=== PATIENT | male | born 1960 | race Caucasian/White ===

== ENCOUNTER 2017-10-15 22:40 | Emergency (ER) | payer OTHER ==
--- NOTE | 2017-10-15 22:59 | EDPHY ---
H & P Time Seen by Provider: 10/15/17 22:45 HPI/ROS: HPI The patient presents with alcohol intoxication and inability to walk. The patient has a history of alcoholism and has been sober for several years, he appears to have had a relapse, over the last 7-10 days, drinking and then returning home to his sober living facility.. He tonight returned, obviously intoxicated and his friends at the sober house [facility]. When he was there, he was unable to stand with a steady gait, so they brought him to the emergency department. The patient denies any acute complaints. He denies any shortness of breath, palpitations, cough, leg swelling. REVIEW OF SYSTEMS Constitutional: No fever, no chills. Eyes: No discharge. ENT: No sore throat. Cardiovascular: No chest pain, no palpitations. Respiratory: No cough, no shortness of breath. Gastrointestinal: No abdominal pain, no vomiting. Genitourinary: No hematuria. Musculoskeletal: No back pain. Skin: No rashes. Neurological: No headache. PMHx: Denies any medical problems Soc Hx: History of alcoholism, has been living in [facility] a sober living facility, no tobacco use, retired [employer] PHYSICAL General Appearance: Alert, no distress Eyes: Pupils equal and round no pallor or injection ENT, Mouth: Mucous membranes moist Respiratory: There are no retractions, lungs are clear to auscultation Cardiovascular: Regular rate and rhythm Gastrointestinal: Abdomen is soft and non-tender, no masses, bowel sounds normal Neurological: A&O, moves all extremities Skin: Warm and dry, no rashes Musculoskeletal: Neck is supple non tender Extremities: symmetrical, full range of motion Psychiatric: Patient is oriented X 3, there is no agitation Source: Patient Exam Limitations: Intoxication Constitutional: Initial Vital Signs Temperature (C) 36.3 C 10/15/17 22:58 Heart Rate 104 H 10/15/17 22:58 Respiratory Rate 18 10/15/17 22:58 Blood Pressure 141/104 H 10/15/17 22:58 O2 Sat (%) 83 L 10/15/17 22:58 O2 Delivery Mode Room Air O2 (L/minute) 2 Allergies/Adverse Reactions: No Known Allergies Allergy (Unverified 10/15/17 22:57) Home Medications: Medication Instructions Recorded Effexor 10/15/17 Medical Decision Making - Diagnostics Imaging Results: Chest x-ray two view shows no infiltrate, no effusion, interpreted by me, radiology interpretation is pending. Imaging: I viewed and interpreted images myself Differential Diagnosis: This is a 57-year-old man with history of alcoholism who has recently relapsed and appears intoxicated, brought in by friends at sober living facility for monitoring as he cannot walk steadily. He would like to go to the [facility] once he is medically cleared. On exam, he is notably hypoxic, though denies any respiratory complaints. This could be related to his level of sedation and intoxication. Other possibilities include pneumonia, pneumothorax. In the emergency department, patient was monitored for several hours and slept for most of his stay here. He received supplemental oxygen initially. Room air saturation was about 92 which time of discharge. I feel his intoxication was causing his low oxygenation. He will be discharged to the [facility] with Librium. - Data Points Medications Given: Discontinued Medications Chlordiazepoxide (Librium 25 Mg Prepack#6) 1 btl [facility] Stop: 10/16/17 05:08 Last Admin: 10/16/17 05:12 Dose: 1 btl Departure - Departure Disposition: Home, Routine, Self-Care Clinical Impression: Hypoxia Alcoholic intoxication Qualifiers: Complication of substance-induced condition: with delirium Qualified Code(s): F10.921 - Alcohol use, unspecified with intoxication delirium Condition: Good Instructions: Alcohol Intoxication (ED) Referrals: [facility] [Outside] - As per Instructions
[2017-10-16 03:58] VITALS: RESP 15
[2017-10-16] MEDS ORDERED: CHLORDIAZEPOXIDE 25MG PREPK#6 BTL TAKEHOME ONE (05:07)
[2017-10-16 05:25] VITALS: BP 126/68; PULSE 67; TEMP 98.6; O2SAT 91
== END 2017-10-16 05:22 | disposition home or self-care (01) ==
DX: F10.921 Alcohol use, unspecified with intoxication delirium (principal); R09.02 Hypoxemia

== ENCOUNTER 2017-10-16 19:27 | Inpatient (IN) | payer OTHER ==
[2017-10-16] MEDS ORDERED: NS 1,000 ML IV ONE ×2 (19:32)
[2017-10-16] MEDS ORDERED: LORazepam 2 MG/ML INJ IVP ONE (19:32)
[2017-10-16 19:41] LABS: % IMMATURE GRANULYOCYTES 0.4 % (0.0-1.1); ABSOLUTE IMMATURE GRANULOCYTES 0.02 10^3/uL (0.00-0.10); ADD DIFF? NO; ADD MORPH? NO; ADD SCAN? NO; ATYPICAL LYMPHOCYTE FLAG 0 (0-99); FRAGMENT RBC FLAG 0 (0-99); HEMATOCRIT 44.4 % (40.0-51.0); HEMOGLOBIN 15.3 g/dL (13.7-17.5); LEFT SHIFT FLG 0 (0-99); LIPEMIA HEMOLYSIS FLAG 90 (0-99); MEAN CELL HEMOGLOBIN 36.2 pg (27.9-34.1); MEAN CELL HEMOGLOBIN CONCENTR. 34.5 g/dL (32.4-36.7); MEAN PLATELET VOLUME 10.2 fL (8.7-11.7); PLATELET CLUMPS FLAG 10 (0-99); PLATELET COUNT 61 10^3/uL (150-400); RED BLOOD CELL COUNT 4.23 10^6/uL (4.40-6.38); RED CELL DISTRIBUTION WIDTH 14.1 % (11.5-15.2)
[2017-10-16 19:52] LABS: ANION GAP 29 mEq/L (8-16); CALCIUM 8.8 mg/dL (8.5-10.4); CARBON DIOXIDE 23 mEq/l (22-31); CHLORIDE 87 mEq/L (97-110); CREATININE 0.9 mg/dL (0.7-1.3); ETHANOL SERUM 17 mg/dL (0-10); GLOMERULAR FILTRATION RATE > 60; GLUCOSE 134 mg/dL (70-100); SODIUM 139 mEq/L (134-144)
[2017-10-16 19:56] LABS: POTASSIUM 2.5 mEq/L (3.5-5.2)
[2017-10-16] MEDS ORDERED: MAGNESIUM SULF 2 GM/WATER 50 ML IV ONE (20:04)
[2017-10-16] MEDS ORDERED: POTASSIUM Cl (KCl) 100 ML IV ONE (20:04)
--- NOTE | 2017-10-16 20:26 | EDPHY ---
H & P Stated Complaint: etoh sz at [facility] - Personal History Current Tetanus/Diphtheria Vaccine: Unsure Current Tetanus Diphtheria and Acellular Pertussis (TDAP): Unsure - Medical/Surgical History Hx Asthma: No Hx Chronic Respiratory Disease: No Hx Diabetes: No Hx Cardiac Disease: No Hx Renal Disease: No Hx Cirrhosis: No Hx Alcoholism: No Hx HIV/AIDS: No Hx Splenectomy or Spleen Trauma: No Other PMH: etoh - Social History Smoking Status: Never smoked HPI/ROS: Chief complaint: Seizure History of present illness: This is a 57-year-old male who is brought to the emergency department by EMS from the [facility] for a seizure. Patient was seen in this emergency department last night for intoxication. He was allowed to sober up and then was sent to the [facility] early this morning with Librium. Apparently this evening he had a seizure in bed and rolled off of the bed. It was described to me by EMS as a tonic-clonic type seizure. A postictal state was noted. Patient has a history of alcohol abuse. However on my evaluation he is alert and talking to me and states he has never had a seizure with alcohol withdrawal before. On my evaluation he states he is feeling generally unwell but no specific complaints. Review of systems: A 10 point review of systems was obtained and other than described above was negative (Phil Ann) - Physical Exam Exam: General Appearance: Alert, nontoxic, mildly tremulous. Eyes: Pupils equal and round no pallor or injection. ENT, Mouth: Mucous membranes moist. Respiratory: There are no retractions, lungs are clear to auscultation. Cardiovascular: Tachycardic with regular rhythm. Gastrointestinal: Abdomen is soft and non tender, no masses, bowel sounds normal. Neurological: Alert and able to converse with me. Moving all extremities. Skin: Warm and dry, no rashes. Contusion around the left eye that appears to be in later stages of healing. Musculoskeletal: Neck is supple non tender. Extremities are symmetrical, full range of motion. Psychiatric: There is no agitation. (Phil Ann) Constitutional: Initial Vital Signs Temperature (C) 36.7 C 10/16/17 19:25 Heart Rate 116 H 10/16/17 19:25 Respiratory Rate 18 10/16/17 19:25 Blood Pressure 170/117 H 10/16/17 19:25 O2 Sat (%) 95 10/16/17 19:25 O2 Delivery Mode Room Air Allergies/Adverse Reactions: No Known Allergies Allergy (Unverified 10/15/17 22:57) Home Medications: Medication Instructions Recorded Venlafaxine Xr [Effexor Xr 75MG 75 mg PO DAILY 10/15/17 (*)] Multivitamins [Multivitamin (*)] 1 each PO DAILY 10/16/17 Medical Decision Making - Diagnostics Imaging: Discussed imaging studies w/ certified genetic counselor Radiologist, I viewed and interpreted images myself ED Course/Re-evaluation: Patient is discussed with my secondary supervising physician Dr. Gabriel Fried. Patient is brought to the emergency department from the [facility] for an apparent seizure. He was sent to the [facility] early this morning with a Librium prepack. However he states he did not get any. We did contact the [facility]. They confirm they did not give him any as he appeared well all day. Evaluation reveals him to be tachycardic and hypertensive on arrival. He was given 2 mg of Ativan with improvement in symptoms and vital signs but he became profoundly hypoxic in the low 80s. He does maintain his oxygen saturation well on 1 L of oxygen by nasal cannula. Blood studies are obtained. He is hypokalemic. He is given magnesium and potassium. Given withdrawal seizure, difficulty treating patient with benzos given secondary hypoxia and hypokalemia he will be admitted for further care. (Phil Ann) Differential Diagnosis: Included but not limited to alcohol intoxication, alcohol withdrawal, DT, electrolyte disturbances, traumatic injury (Phil Ann) - Data Points Laboratory Results: Laboratory Results 10/16/17 19:30 10/16/17 19:30 Medications Given: Chlordiazepoxide HCl (Librium) 25 - 50 mg PO Q4HRS PRN PRN Reason: Agitation Stop: 04/14/18 21:57 Last Admin: 10/17/17 05:21 Dose: 25 mg Hydralazine HCl (Apresoline) 10 mg IVP Q6 PRN PRN Reason: SBP>160 Stop: 04/14/18 22:00 Last Admin: 10/17/17 05:18 Dose: 10 mg Thiamine HCl 500 mg/ Sodium (Chloride) 105 mls @ 210 mls/hr IV DAILY MISSY Stop: 10/20/17 08:59 Last Admin: 10/17/17 08:53 Dose: 105 mls Ondansetron HCl (Zofran) 4 mg IVP Q4 PRN PRN Reason: Nausea/Vomiting, Can't Take PO Stop: 04/14/18 22:00 Last Admin: 10/17/17 10:29 Dose: 4 mg Promethazine HCl (Phenergan) 6.25 mg IVP Q6 PRN PRN Reason: Nausea/Vomiting, Can't Take PO Stop: 04/14/18 22:00 Last Admin: 10/16/17 23:24 Dose: 6.25 mg Discontinued Medications Chlordiazepoxide HCl (Librium) 25 mg PO EDNOW ONE Stop: 10/16/17 21:12 Last Admin: 10/16/17 22:17 Dose: 25 mg Sodium Chloride (Ns) 1,000 mls @ 0 mls/hr IV EDNOW ONE; Wide Open PRN Reason: Protocol Stop: 10/16/17 19:33 Last Admin: 10/16/17 19:48 Dose: 1,000 mls Sodium Chloride (Ns) 1,000 mls @ 0 mls/hr IV EDNOW ONE; Wide Open PRN Reason: Protocol Stop: 10/16/17 19:33 Last Admin: 10/16/17 19:49 Dose: 1,000 mls Magnesium Sulfate (Magnesium Sulf 2 Gm (Premix)) 50 mls @ 50 mls/hr IV EDNOW ONE Stop: 10/16/17 21:03 Last Admin: 10/16/17 20:35 Dose: 50 mls Potassium Chloride (Potassium Cl 10 Meq (Premix)) 100 mls @ 100 mls/hr IV EDNOW ONE Stop: 10/16/17 21:03 Last Admin: 10/16/17 23:39 Dose: Not Given Potassium Chloride 10 meq/ (Sodium Chloride) 100 mls @ 100 mls/hr IV EDNOW ONE Stop: 10/16/17 21:59 Last Admin: 10/16/17 23:24 Dose: 100 mls Lorazepam (Ativan Injection) 2 mg IVP EDNOW ONE Stop: 10/16/17 19:33 Last Admin: 10/16/17 19:48 Dose: 2 mg Potassium Chloride (Klor-Con) 40 meq PO ONCE ONE PRN Reason: Protocol Stop: 10/17/17 09:50 Last Admin: 10/17/17 10:29 Dose: 40 meq Departure - Departure Disposition: [facility] Clinical Impression: Hypoxia, Hypokalemia Alcohol withdrawal Qualifiers: Complication of substance-induced condition: with unspecified complication Qualified Code(s): F10.239 - Alcohol dependence with withdrawal, unspecified Condition: Fair
[2017-10-16] MEDS ORDERED: POTASSIUM Cl (KCl) 10 MEQ in NS 100 ML IV ONE (21:00)
[2017-10-16] MEDS ORDERED: chlordiazePOXIDE 25 MG CAP PO ONE (21:11)
[2017-10-16] MEDS ORDERED: LORazepam 2 MG/ML INJ IVP PRN (21:58)
[2017-10-16] MEDS ORDERED: PROMETHAZINE HCL 25 MG/ML INJ IVP PRN (22:01)
[2017-10-16] MEDS ORDERED: hydrALAZINE 20 MG/ML VIAL IVP PRN (22:01)
[2017-10-16] MEDS ORDERED: ACETAMINOPHEN 500 MG TAB PO PRN (22:01)
[2017-10-16] MEDS ORDERED: ONDANSETRON 4 MG/2 ML VIAL IVP PRN (22:01)
--- NOTE | 2017-10-16 22:56 | GHP ---
[f rep st] HISTORY AND PHYSICAL DATE OF ADMISSION: 10/16/2017 CHIEF COMPLAINT: Seizure. HISTORY: The patient is a 57-year-old male, brought from the [facility] due to a seizure. He was seen in [facility] emergency room last night for intoxication and sent to the [facility] this morning once he had sobered up with a prescription for Librium. This evening, he had a seizure while in bed at the [facility]. He fell o ut of bed. He had a postictal period afterwards. The patient does not remember having a seizure. Jean oliver did not give him any Librium at all while he was at [facility] because he was actually doing very well w ithout any obvious signs of withdrawal. He is now again awake and alert in the emergency room withou t any acute complaints. He did desaturate to 80% on room air after 2 mg of Ativan. PAST MEDICAL HISTORY: Alcoholism. MEDICATIONS: Please see computerized record for full detailed list. ALLERGIES: No known drug allergies. SOCIAL HISTORY: No smoking. He drinks 1-1/2 pints per day of vodka. He is a retired police communications operator . He lives between his and the [facility]. REVIEW OF SYSTEMS: Complete review of systems obtained. Review of systems negative for constitution al, HEENT, GI, pulmonary, cardiovascular, , hematology, skin, muscular, endocrine psych, except for positives and negatives as in the HPI. FAMILY HISTORY: Reviewed and noncontributory to presenting complaint. PHYSICAL EXAMINATION: GENERAL: Well-developed, well-nourished male, in no distress. VITAL SIGNS: Temperature is 36.7, pulse 116, blood pressure 170/117, saturating 95% on room air. HEENT: Normal c onjunctivae. Pupils react to light. Normal ears, nose. Hearing intact. Normal teeth. Oropharynx m oist. NECK: Trachea midline. No thyromegaly. CHEST: Normal respiratory effort. LUNGS: Cleat to auscultation bilaterally. CARDIOVASCULAR: Regular rhythm. No murmur. No lower extremity edema. ABDOMEN: Soft, nontender. No hepatosplenomegaly. SKIN: Warm, dry, intact, without rash. MUSCULOS KELETAL: No cyanosis or clubbing. Strength 5/5 upper and lower extremities. There is minimal tremo r. NEUROLOGIC: Cranial nerves intact. Normal sensation to light touch. PSYCHIATRIC: Alert and or iented x3. Normal affect. Normal judgment and insight. Normal memory. LABORATORY DATA: White count 4.75, hematocrit 44.4, platelets 61. Sodium 131, potassium 2.5, chlori de 85, bicarb 23, BUN 9, creatinine 0.9, glucose 134. Alcohol level is 17. Head CT is negative. Ch est x-ray is negative. DISCUSSION: This case was discussed with Phil Ann, emergency room provider, regarding emergency ro om course. ASSESSMENT/PLAN: 1. Alcohol withdrawal seizure. Will place him on a CIWA protocol and use benzos as needed. His wit hdrawal does not appear to be severe at this time. The patient does desire complete alcohol cessatio n and to return to rehab, where he has been in the past. 2. Hypokalemia. This will be repleted per potassium protocol. 3. Hypertension. Patient states he only has high blood pressure when he is drinking. He does not h ave underlying essential hypertension. Will treat p.r.n. for extreme blood pressure elevations here, but he will likely not require medication upon discharge. 4. Thrombocytopenia. This is due to his alcohol use. We will follow it. CODE STATUS: Full. ADMISSION STATUS: Will admit to observation as depending on the severity of his alcohol withdrawal w ill determine length of stay needed. DEEP VEIN THROMBOSIS PROPHYLAXIS: Will hold off on pharmacologic prophylaxis due to his severe throm bocytopenia. /[id number]/MODL
[2017-10-17 04:15] LABS: % IMMATURE GRANULYOCYTES 0.2 % (0.0-1.1); ABSOLUTE IMMATURE GRANULOCYTES 0.01 10^3/uL (0.00-0.10); ADD DIFF? NO; ADD MORPH? NO; ADD SCAN? NO; ATYPICAL LYMPHOCYTE FLAG 0 (0-99); FRAGMENT RBC FLAG 0 (0-99); HEMATOCRIT 36.4 % (40.0-51.0); HEMOGLOBIN 12.9 g/dL (13.7-17.5); LEFT SHIFT FLG 0 (0-99); LIPEMIA HEMOLYSIS FLAG 90 (0-99); MEAN CELL HEMOGLOBIN 35.3 pg (27.9-34.1); MEAN CELL HEMOGLOBIN CONCENTR. 35.4 g/dL (32.4-36.7); MEAN CELL VOLUME 99.7 fL (81.5-99.8); MEAN PLATELET VOLUME 10.9 fL (8.7-11.7); PLATELET CLUMPS FLAG 0 (0-99); RED BLOOD CELL COUNT 3.65 10^6/uL (4.40-6.38); RED CELL DISTRIBUTION WIDTH 13.8 % (11.5-15.2)
[2017-10-17 04:20] LABS: PLATELET COUNT 39 10^3/uL (150-400)
[2017-10-17 04:34] LABS: ALANINE AMINOTRANSFERASE 80 IU/L (21-72); ALBUMIN 3.3 g/dL (3.5-5.0); ALKALINE PHOSPHATASE 56 IU/L (38-126); ANION GAP 11 mEq/L (8-16); ASPARTATE AMINOTRANSFERASE 114 IU/L (17-59); BILIRUBIN,TOTAL 1.2 mg/dL (0.1-1.4); BILIRUBIN-CONJUGATED 0.2 mg/dL (0.0-0.5); CALCIUM 8.2 mg/dL (8.5-10.4); CARBON DIOXIDE 30 mEq/l (22-31); CHLORIDE 96 mEq/L (97-110); CREATININE 0.7 mg/dL (0.7-1.3); GLOMERULAR FILTRATION RATE > 60; GLUCOSE 93 mg/dL (70-100); MAGNESIUM 2.1 mg/dL (1.6-2.3); POTASSIUM 2.8 mEq/L (3.5-5.2); SODIUM 137 mEq/L (134-144); TOTAL PROTEIN 5.6 g/dL (6.3-8.2)
[2017-10-17 04:36] LABS: PLATELET ESTIMATE DECREASED (ADEQ)
[2017-10-17] MEDS: chlordiazePOXIDE 25 MG CAP PO PRN ×3 (05:21→23:37)
[2017-10-17] MEDS: THIAMINE HCL 500 MG in NS 100 ML IV SCH (08:53)
--- NOTE | 2017-10-17 08:53 | HOSPPROG ---
Hospitalist Progress Note Assessment/Plan: #Etoh withdrawal seizure: CIWA. [employer] on cessation #Hypokalemia: on protocol. Check mag #HTN: due to w/d. Treat withdrawal #Thrombocytopenia: down to 39 today. Due to Etoh. No heparin #Diet: regular #DVT ppx: SCDs #Disp: warrants inpatient admission with Etoh w/d, hypokalemia. Requiring IV electrolytes and CIWA Subjective: does not remember seizure last night. No LOERA or CP Objective: Vital Signs Temp Pulse Resp BP Pulse Ox 36.8 C 77 17 141/89 H 98 10/17/17 08:05 10/17/17 08:05 10/17/17 08:05 10/17/17 08:05 10/17/17 08:05 Laboratory Results 10/17/17 03:55 10/17/17 03:55 10/16/17 10/17/17 10/18/17 05:59 05:59 05:59 Intake Total 2775 Output Total 800 200 Balance 1974 - - Physical Exam Constitutional: no apparent distress Eyes: PERRL Ears, Nose, Mouth, Throat: moist mucous membranes Cardiovascular: regular rate and rhythym Respiratory: no respiratory distress, no rales or rhonchi Gastrointestinal: normoactive bowel sounds, soft, non-tender abdomen Genitourinary: no bladder fullness Skin: warm Musculoskeletal: full muscle strength Neurologic: AAOx3, CN II-XII Intact, other (mild tongue fasiculations) Psychiatric: anxious, other (tearful) ICD10 Worksheet Patient Problems: Problems Problem Status Onset Alcohol withdrawal Acute Hypokalemia Acute Hypoxia Acute
[2017-10-17] MEDS ORDERED: PROTOCOL POTASSIUM 1 DOSE MISC PRN (09:35)
[2017-10-17] MEDS ORDERED: POTASSIUM CL 10 MEQ TAB PO ONE (09:49)
--- NOTE | 2017-10-17 11:28 | ASMTCMCOM ---
CM Note CM Note Notes: 10/17/2017 Case Management Note Met w/pt. Pt shared that he has been recently living in [facility], a sober support house for the last 3 - 4 months. He attends AA meetings 3x/week. He has a therapist in [facility] who he has not seen for 2 months. He has an MD, Dr. El in [place], who is his prescriber for Effexor. He lives with his Sarah [phone], but he was uncertain she would come visit him in the hospital. Pt stated he did not think [facility] would take him back because of relapse. He declined exploring in patient rehab options. He plans to go to the [facility] to retrieve his belongings but he did not want to continue treatment there. Pt declined any assistance from case management and plans to return home at d/c. Case Management d/c poc: Home independent when medically stable. Date Signed: 10/17/2017 11:28 AM Electronically Signed By:Irene Eid RN
--- NOTE | 2017-10-17 13:49 | PDMN ---
Medical Necessity Medical necessity: Patient meets INPT criteria per physician note and [facility] M-595 Substance-Related Disorders (seen in the ED for intoxication, sent to [facility] when sober where he had a withdrawal seizurel, desat'ed to 80% on RA after Ativan, hypokalemia/K+ 2.5 initially, to 2.8 p IV K+, hypertensive / B/P 170/117; anticipated LOS > 2 midnights for ongoing IV K+ replacement, IV apresoline prn for HTN, [facility] protocol.)
[2017-10-17] MEDS ORDERED: POTASSIUM CL 20 MEQ TAB PO ONE (23:16)
[2017-10-18 03:59] LABS: % IMMATURE GRANULYOCYTES 0.3 % (0.0-1.1); ABSOLUTE IMMATURE GRANULOCYTES 0.01 10^3/uL (0.00-0.10); ADD DIFF? NO; ADD MORPH? NO; ADD SCAN? NO; ATYPICAL LYMPHOCYTE FLAG 0 (0-99); FRAGMENT RBC FLAG 0 (0-99); HEMATOCRIT 37.9 % (40.0-51.0); HEMOGLOBIN 13.1 g/dL (13.7-17.5); LEFT SHIFT FLG 0 (0-99); LIPEMIA HEMOLYSIS FLAG 90 (0-99); MEAN CELL HEMOGLOBIN 35.2 pg (27.9-34.1); MEAN CELL HEMOGLOBIN CONCENTR. 34.6 g/dL (32.4-36.7); MEAN CELL VOLUME 101.9 fL (81.5-99.8); MEAN PLATELET VOLUME 11.6 fL (8.7-11.7); PLATELET CLUMPS FLAG 0 (0-99); RED BLOOD CELL COUNT 3.72 10^6/uL (4.40-6.38); RED CELL DISTRIBUTION WIDTH 13.3 % (11.5-15.2)
[2017-10-18 04:02] LABS: PLATELET COUNT 39 10^3/uL (150-400)
[2017-10-18 04:26] LABS: ANION GAP 13 mEq/L (8-16); CALCIUM 8.7 mg/dL (8.5-10.4); CARBON DIOXIDE 31 mEq/l (22-31); CHLORIDE 95 mEq/L (97-110); CREATININE 0.8 mg/dL (0.7-1.3); GLOMERULAR FILTRATION RATE > 60; GLUCOSE 80 mg/dL (70-100); POTASSIUM 3.1 mEq/L (3.5-5.2); SODIUM 139 mEq/L (134-144)
[2017-10-18 04:53] LABS: PLATELET ESTIMATE DECREASED (ADEQ)
[2017-10-18] MEDS ORDERED: POTASSIUM CL 10 MEQ TAB PO ONE (07:49)
[2017-10-18] MEDS: THIAMINE HCL 500 MG in NS 100 ML IV SCH (08:11)
[2017-10-18 08:27] VITALS: BP 154/109; PULSE 80; RESP 15; TEMP 98.3; O2SAT 93
[2017-10-18] MEDS ORDERED: VENLAFAXINE XR 75 MG CAP PO SCH (09:00)
--- NOTE | 2017-10-18 14:42 | ASDISCHSUM ---
Discharge Information Plan Status:Home with No Needs Medically Cleared to Leave:10/17/2017 Discharge Date:10/18/2017 11:01 AM CM D/C Disposition:Home, Routine, Self-Care ADT D/C Disposition:Home, Routine, Self-Care Projected Discharge Date:10/18/2017 11:01 AM Transportation at D/C:Family Discharge Delay Reason: Follow-Up Date:10/18/2017 11:01 AM Discharge Slot: Final Diagnosis: Placement Information Patient Contact Information Contact Name:APOLLO Relationship:Friend Address:[address] [place] Work Phone: City:[facility] Phone: [facility]/Zip Code:[place] [address] Email: Financial Information Financial Class:HMO and PPO Plans Primary Plan Desc:[employer] PPO POS HMO SIG ADM Primary Plan Number:[id number] Secondary Plan Desc: Secondary Plan Number: Assessment Information [facility] CM Progress Note CM Note CM Note Notes: 10/17/2017 Case Management Note Met w/pt. Pt shared that he has been recently living in [place], a [facility] [place] for the last 3 - 4 months. He attends AA meetings 3x/week. He has a therapist in [facility] who he has not seen for 2 months. He has an MD, Dr. El in [place], who is his prescriber for Effexor. He lives with his Sarah [phone], but he was uncertain she would come visit him in the hospital. Pt stated he did not think [facility] would take him back because of relapse. He declined exploring in patient rehab options. He plans to go to the [facility] to retrieve his belongings but he did not want to continue treatment there. Pt declined any assistance from case management and plans to return home at d/c. Case Management d/c poc: Home independent when medically stable. Date Signed: 10/17/2017 11:28 AM Electronically Signed By:Irene Eid RN Case Management Discharge Plan Note Case Management Discharge Discharge Order Complete? Answers: Yes Patient to Obtain Answers: via Family Medications Transportation Arranged Answers: Family/Friends Discharge Comments Notes: Pt discharging home today. Declined CM assistance for [employer] resources. Date Signed: 10/18/2017 02:40 PM Electronically Signed By:YAN Troy Intervention Information
--- NOTE | 2017-10-18 14:54 | GDS ---
[f rep st] DISCHARGE SUMMARY DISCHARGE DIAGNOSES: 1. Alcohol withdrawal seizure. 2. Alcohol dependence. 3. Hypokalemia. 4. Hypertension. 5. Thrombocytopenia. HISTORY OF PRESENT ILLNESS: A 57-year-old male with history of alcohol abuse, drinking 1 to 1-1/2 pints a day, who was brought to [facility] from the [facility] after having a seizure. He was seen in the emergency room the night prior to for intoxication. Sent to [facility] once he had sobered up with a prescription for Librium. He fell out of the bed after having a seizure and had a postictal period. He has tried quitting in the past, has been at an inpatient rehab facility in [place], [place]. He states that stress in his marital relationship is contributing to his alcohol use. HOSPITAL COURSE BY PROBLEM: 1. Alcohol withdrawal seizure: No further seizures during the stay. He was placed on CIWA protocol. I discharged on a quick taper of Librium. He has family support and plans to go to the [facility]. 2. Hypokalemia secondary to alcohol. Repleted. 3. Hypertension. Again, secondary to withdrawal. 4. 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 No evidence of bleeding. I did advise him the risks of bleeding if has a fall or cuts himself. DISPOSITION: Patient is stable for discharge home with plan to go to [facility] for sobriety. He was counseled by Case Management for other resources. MEDICATIONS: Librium 25 mg for 2 days then stop. FOLLOWUP: 1. Primary care physician. 2. [facility] for sobriety. PHYSICAL EXAM: VITAL SIGNS: Today, temperature 36.8, blood pressure 154/85, heart rate in the 80s, respirations 15, 93% on room air, heart rate 80s. GENERAL: Lying in bed, appears brighter today. HEENT: PERRLA. EOMI. Oropharynx clear. CV: Regular rate and rhythm. No murmurs, gallops, or rubs. LUNGS: Clear to auscultation bilaterally. ABDOMEN: Soft, nontender, nondistended. Positive bowel sounds. : No [place]. MUSCULOSKELETAL: 5/5 upper and lower extremity strength. NEURO: 2 through 12 intact. No tongue fasciculation or hand tremor. PSYCH: Alert and oriented x3. Time spent coordinating discharge and counseling on Etoh cessation > 35 min /[id number]/MODL MTDD
[2017-10-20] MEDS ORDERED: THIAMINE HCL 100 MG TAB PO SCH (09:00)
== END 2017-10-18 11:01 | disposition home or self-care (01) | DRG 897 ==
LOC: EDUNIT# → F2W 22:32 → OBSVTOIN 10-17 11:21
PROVIDERS: ADMIT Internal Medicine; ATTEND Internal Medicine
DX: F10.239 Alcohol dependence with withdrawal, unspecified (principal); R56.9 Unspecified convulsions; E87.6 Hypokalemia; R09.02 Hypoxemia; I10 Essential (primary) hypertension; D69.6 Thrombocytopenia, unspecified
CPT/HCPCS: 96365; G0378; G0480; J0360; J2060; J2405; J2550; J3411